=== PATIENT | female | born 1995 | race African-American/Black ===

== ENCOUNTER 2017-05-26 22:18 | Emergency (ER) | payer OTHER ==
[2017-05-26 22:43] VITALS: BP 118/68; PULSE 61; TEMP 98; BMI 20.6
--- NOTE | 2017-05-26 23:57 | PDOC ---
History of Present Illness - General Chief Complaint: Pain Stated Complaint: CHEST PAIN Time Seen by Provider: 05/26/17 23:09 - History of Present Illness Initial Comments: 05/26/17 23:50 CHIEF COMPLAINT: chest pain, SOB HISTORY OF PRESENT ILLNESS: 21 yo F with no significant PMH presents to ED with chest pain that began approximately one hour prior to arrival. Patient states that the pain is worsened "when I cough" and states she has been coughing since this morning. She denies any fever, chills, nausea, vomiting, or diarrhea. She denies any use of OCP or other hormones, denies any smoking, denies recent travel. PAST MEDICAL HISTORY: Denies past medical history FAMILY HISTORY: Denies SOCIAL HISTORY: Denies tobacco, alcohol, illicit drug use. SURGICAL HISTORY: Denies ALLERGIES: No known drug allergies REVIEW OF SYSTEMS General/Constitutional: Denies fever or chills. Denies weakness, weight change. HEENT: Denies change in vision. Denies ear pain or discharge. Denies sore throat. Cardiovascular: Chest pain and SOB since one hour ago. Respiratory:Cough today. Denies wheezing, or hemoptysis. Gastrointestinal: Denies nausea, vomiting, diarrhea or constipation. Denies rectal bleeding. Genitourinary: Denies dysuria, frequency, or change in urination. Musculoskeletal: Denies joint or muscle swelling or pain. Denies neck or back pain. Skin and breasts: Denies rash or easy bruising. PHYSICAL EXAM General Appearance: Well-appearing, appropriately dressed. No apparent distress , no intoxication. HEENT: EOMI, PERRLA, normal ENT inspection, normal voice, TMs normal, pharynx normal. No conjunctival pallor. No photophobia, scleral icterus. Neck: Supple. Trachea midline. No tenderness, rigidity, carotid bruit, stridor , lymphadenopathy, or thyromegaly. Respiratory/Chest: Reproducible chest tenderness to left upper chest to left lower ribs. Lungs CTAB. No shortness of breath, respiratory distress, accessory muscle use. No crackles, rales, rhonchi, stridor, wheezing, dullness Cardiovascular: RRR. S1, S2. No JVD, murmur, bradycardia, tachycardia. Vascular Pulses: Dorsalis-Pedis (R): 2+, Dorsalis-Pedis (L): 2+ Gastrointestinal/Abdominal: Normal bowel sounds. Abdomen soft, non-distended. No tenderness or rebound tenderness. No organomegaly, pulsatile mass, guarding , hernia, hepatomegaly, splenomegaly. Musculoskeletal/Extremities: Normal inspection. FROM of all extremities, normal capillary refill. Pelvis Stable. No CVA tenderness. No tenderness to extremities, pedal edema, swelling, erythema or deformity. Integumentary: Appropriate color, dry, warm. No cyanosis, erythema, jaundice or rash Neurologic: manager heart failure II-XII intact. Fully oriented, alert. Appropriate mood/affect. Motor strength 5/5. No appreciable EOM palsy, facial droop or sensory deficit. Past History - Past Medical History Allergies/Adverse Reactions: Allergies Allergy/AdvReac Type Severity Reaction Status Date / Time No Known Allergies Allergy Verified 05/26/17 22:41 Home Medications: Ambulatory Orders Naproxen 250 mg PO BID #14 tablet 05/27/17 Other medical history: Pt denies - Suicide/Smoking/Psychosocial Hx Smoking History: Never smoked Have you smoked in the past 12 months: No Information on smoking cessation initiated: No Hx Alcohol Use: No Drug/Substance Use Hx: No Substance Use Type: None *Physical Exam - Vital Signs Last Vital Signs Temp Pulse Resp BP Pulse Ox 98.0 F 61 18 118/68 100 05/26/17 22:41 05/26/17 22:41 05/26/17 22:41 05/26/17 22:41 05/26/17 22:41 ED Treatment Course - LABORATORY CBC & Chemistry Diagram: 05/26/17 23:00 05/26/17 23:00 - ADDITIONAL ORDERS Additional order review: Laboratory Results 05/27/17 05/27/17 05/26/17 03:19 00:00 23:00 Sodium 140 Potassium 3.5 Chloride 104 Carbon Dioxide 26 Anion Gap 10 BUN 14 Creatinine 0.7 Random Glucose 86 Calcium 8.7 Creatine Kinase 83 99 Troponin I < 0.02 < 0.02 Urine HCG, Qual Negative 05/26/17 23:00 RBC 3.78 MCV 93.5 MCHC 32.9 RDW 13.2 MPV 8.7 - RADIOLOGY Radiology Studies Ordered: Category Date Time Status CHEST PA & LAT [RAD] Stat Radiology 05/27/17 00:01 Taken - Medications Given in the ED: ED Medications Discontinued Medications Generic Name Dose Route Start Last Admin Trade Name Freq PRN Reason Stop Dose Admin Ketorolac Tromethamine 30 mg 05/27/17 00:21 05/27/17 00:37 Toradol Injection - IVPUSH 05/27/17 00:22 30 mg ONCE ONE Administration Medical Decision Making - Medical Decision Making 05/26/17 23:57 21 yo F with no significant PMH presents to ED with chest pain that began approximately one hour prior to arrival. VS stable. Low suspicion for cardiac etiology given no risk factors, reproducible chest pain and normal vital signs. -EKG, CXR -CBC, CMP, card profile 05/27/17 01:05 Labs negative. -Toradol IM for pain EKG with mild T-wave inversion, will repeat trop in 4 hours. 05/27/17 05:10 Trop negative. At this time patient is eating comfortable in bed and talking to mother without any pain. Will discharge to home with close w/u with PMD ( referral provided). Advised patient and mother of signs and symptoms for return to ER and to f/u with PMD by the end of the week. Mother and patient verbalized understanding and agree to plan. *DC/Admit/Observation/Transfer Diagnosis at time of Disposition: Acute chest wall pain - Discharge Dispostion Disposition: HOME Condition at time of disposition: Improved Admit: No - Prescriptions Prescriptions: Naproxen 250 mg PO BID #14 tablet - Referrals Referrals: Mary Domingo MD [Staff Physician] - - Patient Instructions Printed Discharge Instructions: DI for Costochondritis Additional Instructions: Please take medications as prescribed. If you develop any new or worsening chest pain, shortness of breath, palpitations, or any new or worsening symptoms , please return to the ER. - Post Discharge Activity Forms/Work/School Notes: Back to Work
[2017-05-27] LABS: MCH 30.8 pg (25.7-33.7); MCHC 32.9 g/dl (32.0-36.0); MEAN CELL VOLUME 93.5 fl (80-96); MEAN PLT VOLUME 8.7 fl (7.5-11.1); PLATELET COUNT 219 K/MM3 (134-434); RDW 13.2 % (11.6-15.6); WHITE BLOOD COUNT 7.3 K/mm3 (4.0-10.0)
[2017-05-27] MEDS ORDERED: KETOROLAC TROMETHAMINE 30 MG/1 ML VIAL IVPUSH ONE (00:21)
[2017-05-27 00:23] LABS: ANION GAP 10 (8-16); CALCIUM 8.7 mg/dL (8.5-10.1); CO2 26 mmol/L (21-32); CREATININE 0.7 mg/dL (0.55-1.02); GLUCOSE,RANDOM 86 mg/dL (74-106)
[2017-05-27 00:24] LABS: CPK 99 IU/L (26-192); TROPONIN I < 0.02 ng/ml (0.00-0.05)
[2017-05-27] MEDS ORDERED: KETOROLAC TROMETHAMINE 30 MG/1 ML VIAL ONE (00:31)
[2017-05-27 03:56] LABS: CPK 83 IU/L (26-192); TROPONIN I < 0.02 ng/ml (0.00-0.05)
--- NOTE | 2017-05-27 11:05 | EKG ---
Test Reason : Blood Pressure : / mmHG Vent. Rate : 053 BPM Atrial Rate : 053 BPM P-R Int : 130 ms QRS Dur : 080 ms QT Int : 446 ms P-R-T Axes : 060 040 031 degrees QTc Int : 418 ms SINUS BRADYCARDIA LOW VOLTAGE QRS SEPTAL INFARCT , AGE UNDETERMINED ABNORMAL ECG NO PREVIOUS ECGS AVAILABLE Confirmed by BRIAN GONZALEZ MD ([id number]) on 05/27/2017 11:05:03 AM Referred By: Confirmed By:BRIAN GONZALEZ MD
== END 2017-05-27 04:23 | disposition home or self-care (01) ==
LOC: JER 22:18
PROC: 3E0333Z Introduction of Anti-inflammatory into Peripheral Vein, Percutaneous Approach (ICD-10-PCS; principal; 2017-05-26)
DX: R07.89 Other chest pain (principal)
CPT/HCPCS: 36415; 71020-TC; 80048; 84484; 84703; 85027; 93005; 93010; 99282-25

== ENCOUNTER 2018-05-06 20:00 | Emergency (ER) | payer SELFPAY ==
[2018-05-06 20:32] VITALS: BP 111/62; PULSE 59; TEMP 99.9; BMI 22.3
--- NOTE | 2018-05-06 20:32 | PDOC ---
Rapid Medical Evaluation Time Seen by Provider: 05/06/18 20:28 Medical Evaluation: Allergies Allergy/AdvReac Type Severity Reaction Status Date / Time No Known Allergies Allergy Verified 05/26/17 22:41 05/06/18 20:28 I have performed a brief in-person evaluation of this patient. 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 05/06/18 20:31 Discharge Disposition - Diagnosis Finger fracture, left Qualifiers: Encounter type: initial encounter Finger: ring finger Fracture type: open Phalanx: distal Fracture alignment: nondisplaced Qualified Code(s): S62.665B - Nondisplaced fracture of distal phalanx of left ring finger, initial encounter for open fracture - Referrals - Patient Instructions - Post Discharge Activity
[2018-05-06] MEDS ORDERED: DIPHTH,PERTUSS(ACELL),TET 0.5 ML DISP.SYRIN IM ONE (21:24)
--- NOTE | 2018-05-06 21:28 | PDOC ---
History of Present Illness - General Chief Complaint: Injury Stated Complaint: SENT BY PCP Time Seen by Provider: 05/06/18 20:28 - History of Present Illness Initial Comments: 22-year-old female presents from an urgent care with a left fourth finger fracture. She states she was at work today when a drawer fell on her finger causing her injury. She went to an urgent care x-rays were taken report shows attempts fracture at the left fourth distal phalanx. 05/06/18 21:24 Past History - Past Medical History Allergies/Adverse Reactions: Allergies Allergy/AdvReac Type Severity Reaction Status Date / Time No Known Allergies Allergy Verified 05/26/17 22:41 Home Medications: Ambulatory Orders NK [No Known Home Medication] 05/06/18 COPD: No DVT: No Dementia: No - Suicide/Smoking/Psychosocial Hx Smoking History: Never smoked Have you smoked in the past 12 months: No Hx Alcohol Use: No Drug/Substance Use Hx: No Substance Use Type: None Review of Systems - Review of Systems Musculoskeletal: Yes: See HPI All Other Systems: Reviewed and Negative *Physical Exam - Vital Signs Last Vital Signs Temp Pulse Resp BP Pulse Ox 99.9 F H 59 L 16 111/62 98 05/06/18 20:29 05/06/18 20:29 05/06/18 20:29 05/06/18 20:29 05/06/18 20:29 - Physical Exam Comments: There is a crack in the nail longitudinally oriented in the left fourth finger. There is no exposed tissue. FDS and FDP work independently there is swelling on the volar aspect of the finger with purplish ecchymosis. There are no gross sensory or motor deficits. 05/06/18 21:25 Medical Decision Making - Medical Decision Making I do not believe this is an open fracture of believe this is a kendrick fracture with a crush injury component to it we'll update her tetanus and have her follow -up with hand surgery. I have given her instructions to keep the finger splint when she is out of the house remove the splint at home leave the area open to air and kept clean with soap and water. Also given her instructions to keep the nail trimmed 05/06/18 21:25 *DC/Admit/Observation/Transfer Diagnosis at time of Disposition: Finger fracture, left Qualifiers: Encounter type: initial encounter Finger: ring finger Fracture type: open Phalanx: distal Fracture alignment: nondisplaced Qualified Code(s): S62.665B - Nondisplaced fracture of distal phalanx of left ring finger, initial encounter for open fracture - Discharge Dispostion Disposition: HOME Condition at time of disposition: Stable Decision to Admit order: No - Referrals Referrals: Uday Lynch MD [Primary Care Provider] - Lionel Bowser MD [Staff Physician] - - Patient Instructions Printed Discharge Instructions: Finger Fracture, DI for Finger Fracture Additional Instructions: Return to the emergency room should he experience any redness swelling drainage or increasing pain to the area. He may take Tylenol and Motrin for pain. Tetanus shot was updated today. Follow-up with hand surgery in 2-3 days for further evaluation and treatment management. Keep the area splinted when you are outside the house. When you're home keep the area open to air and clean with soap and water. Keep the nail trim so he do not catching on anything. - Post Discharge Activity
== END 2018-05-06 21:34 | disposition home or self-care (01) ==
LOC: JERFT 20:00
PROC: 3E0234Z Introduction of Serum, Toxoid and Vaccine into Muscle, Percutaneous Approach (ICD-10-PCS; principal; 2018-05-06)
DX: S62.665B Nondisplaced fracture of distal phalanx of left ring finger, initial encounter for open fracture (principal); W20.8XXA Other cause of strike by thrown, projected or falling object, initial encounter; Y93.89 Activity, other specified; Y92.9 Unspecified place or not applicable; Y99.0 Civilian activity done for income or pay
CPT/HCPCS: 90715; 99281-25

== ENCOUNTER 2020-05-06 14:11 | Emergency (ER) | payer OTHER ==
[2020-05-06 14:18] VITALS: BP 101/52; PULSE 60; TEMP 98.6; BMI 22.1
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
== END 2020-05-06 16:35 | disposition home or self-care (01) ==
LOC: JERFT 14:11
DX: S00.83XA Contusion of other part of head, initial encounter (principal)
CPT/HCPCS: 70486-TC; 84703; 99284-25

== ENCOUNTER 2022-05-19 20:54 | Emergency (ER) | payer OTHER ==
[2022-05-19 21:06] VITALS: BP 120/53; PULSE 59; RESP 19; TEMP 97.9; BMI 24.2
[2022-05-19] MEDS ORDERED: AMOX TR/POT CLAV 875MG/125MG TABLETS (FP) PO ONE (22:37)
[2022-05-19] MEDS ORDERED: AMOX TR/POT CLAV 875MG/125MG TABLETS (FP) ONE (22:45)
[2022-05-19] MEDS ORDERED: RABIES IMMUNE GLOBULIN 300 UNITS/1 ML VIAL IM ONE (23:26)
[2022-05-19] MEDS ORDERED: RABIES VACCINE (PCEC)/PF 2.5 UNIT/VIAL IM ONE (23:29)
[2022-05-19] MEDS ORDERED: DIPHTH,PERTUSS(ACELL),TET 0.5 ML DISP.SYRIN IM ONE (23:37)
[2022-05-19] MEDS ORDERED: RABIES IMMUNE GLOBULIN 300 UNITS/1 ML VIAL ONE (23:47)
[2022-05-20] MEDS ORDERED: DIPHTH,PERTUSS(ACELL),TET 0.5 ML DISP.SYRIN IM ONE (00:31)
== END 2022-05-20 00:34 | disposition home or self-care (01) ==
LOC: JER 20:54 → JERFT 20:54 → JER 05-20 00:34
PROC: 3E023GC Introduction of Other Therapeutic Substance into Muscle, Percutaneous Approach (ICD-10-PCS; principal; 2022-05-19)
DX: S51.851A Open bite of right forearm, initial encounter (principal); W54.0XXA Bitten by dog, initial encounter
CPT/HCPCS: 90375; 90471; 90675; 90715; 96372; 99284-25

== ENCOUNTER 2022-05-22 09:02 | Emergency (ER) | payer OTHER ==
[2022-05-22 09:13] VITALS: BP 109/77; PULSE 62; RESP 18; TEMP 98; BMI 18.6
[2022-05-22] MEDS ORDERED: RABIES VACCINE (PCEC)/PF 2.5 UNIT/VIAL IM ONE ×2 (09:16→09:31)
== END 2022-05-22 10:01 | disposition home or self-care (01) ==
LOC: JERFT 09:02
PROC: 3E0234Z Introduction of Serum, Toxoid and Vaccine into Muscle, Percutaneous Approach (ICD-10-PCS; principal; 2022-05-22)
DX: Z20.3 Contact with and (suspected) exposure to rabies (principal)
CPT/HCPCS: 90675; 99283-25

== ENCOUNTER 2022-05-29 11:17 | Emergency (ER) | payer OTHER ==
[2022-05-29 11:30] VITALS: BP 113/67; PULSE 73; RESP 15; TEMP 97.7; BMI 18.8
[2022-05-29] MEDS ORDERED: RABIES VACCINE (PCEC)/PF 2.5 UNIT/VIAL IM ONE ×2 (11:55→11:58)
== END 2022-05-29 12:10 | disposition home or self-care (01) ==
LOC: JERFT 11:17
PROC: 3E0234Z Introduction of Serum, Toxoid and Vaccine into Muscle, Percutaneous Approach (ICD-10-PCS; principal; 2022-05-29)
DX: Z20.3 Contact with and (suspected) exposure to rabies (principal)
CPT/HCPCS: 90675; 99283-25

== ENCOUNTER 2022-06-05 11:07 | Emergency (ER) | payer OTHER ==
[2022-06-05 11:28] VITALS: BP 111/74; PULSE 95; RESP 17; TEMP 98.3; BMI 19.1
[2022-06-05] MEDS ORDERED: RABIES VACCINE (PCEC)/PF 2.5 UNIT/VIAL IM ONE ×2 (11:46→11:47)
== END 2022-06-05 11:54 | disposition home or self-care (01) ==
LOC: JERFT 11:07
PROC: 3E023GC Introduction of Other Therapeutic Substance into Muscle, Percutaneous Approach (ICD-10-PCS; principal; 2022-06-05)
DX: Z20.3 Contact with and (suspected) exposure to rabies (principal)
CPT/HCPCS: 90675; 99283-25